=== PATIENT | male | born 1965 | race Caucasian/White ===

== ENCOUNTER 2017-06-25 09:41 | Observation (INO) | payer OTHER ==
[2017-06-25] MEDS ORDERED: Sodium Chloride 0.9% 1,000 ML IV STA (11:37)
--- NOTE | 2017-06-25 11:46 | ED PDOC ---
HPI: General Adult Time Seen by Provider: 06/25/17 11:08 Chief Complaint (Nursing): Headache History Per: Patient, Family (), Other (friend) Additional Complaint(s): As per pt.'s pt. woke up this morning at approximately 0600 with a headache. Pt.'s checked his FS which was 69. He took Tylenol without any relief of headache. As per his friend and they noticed that pt. seemed to be confused and was slow to answer questions. Pt. also had 2 episodes of vomiting. Furthermore pt. states he does feel better from this morning but does still have a headache and confused. Deneis head injury, fever, weakness, numbness, tingling, abdominal pain, diarrhea. NIHSS Stroke Scale - Date/Time Evaluation Performed Date Performed: 06/25/17 Time Performed: 11:30 - How Severe is the Stroke Level of Consciousness: 0=Alert LOC to Questions: 0=Both comments correct LOC to commands: 0=Obeys both correctly Best Gaze: 0=Normal Visual: 0=No visual loss Facial: 0=Normal Motor Arm - Left: 0=No drift Motor Arm - Right: 0=No drift Motor Leg - Left: 0=No drift Motor Leg - Right: 0=No drift Limb Ataxia: 0=Absent Sensory: 0=Normal Best Language: 0=No aphasia Dysarthia: 0=Normal articulation Extinction & Inattention (Neglect): 0=Normal, no object Score: 0 rTPA Inclusion/Exclusion - Refusal of Treatment Patient Refused Treatment: No - Inclusion Criteria for Altepase Patient is 18 years or Older: Yes The Clinical Diagnosis of Ischemic Stroke That is Causing a Potentially Disabling Neurological Deficit: No Time of Onset is Well Established to be Less Than 270 Minute Before Treatment Would Begin: No Risk/Benefit Discussed With Patient/Family Member Present: Yes - Exclusion Criteria for Altepase Uncontrolled Hypertension at Time of Treatment (Systolic BP above 185 or Diastolic BP above 110 mmHg): No Active Internal Bleeding: No Known Bleeding Diathesis Including but Not Limited to: Platelets Below 100,000/ mm,PTT Above 40 sec After Heparin Use, Current Use of Oral Anitcoagulant With INR Greater Than 1.7 or PT Greater Than 15 secs: No Evidence of an Intracranial Hemorrhage: No Evidence of Major Acute Infarct With Signs Greater Than 1/3 MCA Territory: No Suspicion of Subarachnoid Hemorrhage on Pretreatment Evaluation Even if CT Head Negative For Hemorrhage: No - Warning to TPA With Conditions Following Conditions Weighed Against Anticipated Benefit: Yes Condition: Stroke Serevity Too Mild Past Medical History Reviewed: Historical Data, Nursing Documentation, Vital Signs Vital Signs: Last Vital Signs Temp 98 F 06/25/17 19:35 Pulse 79 06/25/17 19:35 Resp 20 06/25/17 19:35 BP 138/71 06/25/17 19:35 Pulse Ox 99 06/25/17 19:35 - Medical History PMH: Diabetes - Surgical History Surgical History: Appendectomy - Family History Family History: States: No Known Family Hx - Home Medications Home Medications: Ambulatory Orders Medication Instructions Recorded Enalapril Maleate [Vasotec] 2.5 mg PO DAILY 06/25/17 Insulin Glargine,Hum.rec.anlog 25 - 30 unit SC HS 06/25/17 [Toujeo Solostar] Insulin Glulisine [Apidra] 10 - 15 unit SC AC 06/25/17 - Allergies Allergies/Adverse Reactions: Allergies Allergy/AdvReac Type Severity Reaction Status Date / Time No Known Allergies Allergy Verified 10/22/15 19:44 Review of Systems ROS Statement: Except As Marked, All Systems Reviewed And Found Negative Gastrointestinal: Positive for: Vomiting Neurological: Positive for: Confusion, Headache Physical Exam - Reviewed Nursing Documentation Reviewed: Yes Vital Signs Reviewed: Yes - Physical Exam Appears: Positive for: Well, Non-toxic, No Acute Distress Head Exam: Positive for: ATRAUMATIC, NORMAL INSPECTION, NORMOCEPHALIC Skin: Positive for: Normal Color, Warm. Negative for: Rash Eye Exam: Positive for: EOMI, Normal appearance, PERRL ENT: Positive for: Normal ENT Inspection Neck: Positive for: Normal, Painless ROM Cardiovascular/Chest: Positive for: Regular Rate, Rhythm Respiratory: Positive for: CNT, Normal Breath Sounds Pulses-Radial (L): 2+ Pulses-Radial (R): 2+ Gastrointestinal/Abdominal: Positive for: Normal Exam, Soft. Negative for: Tenderness Back: Positive for: Normal Inspection Extremity: Positive for: Normal ROM, Other ([facility] consultant strenght b/l) Neurologic/Psych: Positive for: Alert, Oriented, Gait (steady, unassisted). Negative for: Aphasia, Facial Droop - Laboratory Results Result Diagrams: 06/25/17 12:35 06/25/17 12:35 - ECG ECG: Positive for: Interpreted By Me ECG Rhythm: Positive for: Sinus Rhythm. Negative for: ST/T Changes Rate: 92 O2 Sat by Pulse Oximetry: 100 - Progress ED Course And Treament: [address] Mcdaniel who recommends CT head w/o contrast, labs. 1254 CT head w/o contrast: No suspicious intracranial findings in this unenhanced head CT. Brain parenchyma appears within normal limits. Incidental soft tissue bilateral external auditory canals may reflect cerumen. Direct visualization is advised. 1427 Case d/w Dr. Shore and arrangements made for admission. Disposition - Clinical Impression Clinical Impression: Altered mental status - Patient ED Disposition Is Patient to be Admitted: Yes - Disposition Disposition Time: 13:46 Condition: STABLE
[2017-06-25 12:44] LABS: BASO # 0.1 K/uL (0.0-0.2); BASO % 0.6 % (0.0-2.0); EOS % 0.1 % (0.0-4.0); HEMOGLOBIN 12.9 g/dL (12.0-18.0); LYMPH # 1.3 K/uL (1.0-4.3); LYMPH % 15.7 % (20.0-40.0); MEAN CELL VOLUME 115.8 fl (80.0-94.0); MEAN CORPUSCULAR HEMOGLOBIN 40.3 pg (27.0-31.0); MEAN CORPUSCULAR HGB CONC 34.8 g/dL (33.0-37.0); MEAN PLATELET VOLUME 8.4 fl (7.2-11.7); MONO # 0.3 K/uL (0.0-0.8); MONO % 3.1 % (0.0-10.0); NEUT # 6.8 K/uL (1.8-7.0); NEUT % 80.5 % (50.0-75.0); NRBC % 0.1 % (0.0-0.0); RBC 3.21 Mil/uL (4.40-5.90); RED CELL DISTRIBUTION WIDTH 13.8 % (11.5-14.5); WHITE BLOOD COUNT 8.5 K/uL (4.8-10.8)
--- NOTE | 2017-06-25 12:56 | CT ---
PROCEDURE: CT HEAD WITHOUT CONTRAST. HISTORY: headache COMPARISON: None available. TECHNIQUE: Axial computed tomography images were obtained through the head/brain without intravenous contrast. Radiation dose: Total exam DLP = 851.16 mGy-cm. This CT exam was performed using one or more of the following dose reduction techniques: Automated exposure control, adjustment of the mA and/or kV according to patient size, and/or use of iterative reconstruction technique. FINDINGS: HEMORRHAGE: No intracranial hemorrhage. BRAIN: Normal houser-white matter differentiation and density are appreciated throughout the cerebrum and cerebellum with the brainstem appearing unremarkable as well. There is no mass effect. There is no suspicious extra-axial fluid collection and the midline brain anatomy appears diffusely unremarkable. VENTRICLES: Unremarkable. No hydrocephalus. CALVARIUM: Unremarkable. PARANASAL SINUSES: Unremarkable as visualized. No significant inflammatory changes. MASTOID AIR CELLS: Unremarkable as visualized. No inflammatory changes. OTHER FINDINGS: Soft tissue in the bilateral external auditory canals may reflect cerumen though other etiologies are possible. Clinical follow-up advised. IMPRESSION: No suspicious intracranial findings in this unenhanced head CT. Brain parenchyma appears within normal limits. Incidental soft tissue bilateral external auditory canals may reflect cerumen. Direct visualization is advised.
[2017-06-25 12:57] LABS: ALB/GLOB RATIO 1.2 (1.0-2.1); ALBUMIN 4.2 g/dL (3.5-5.0); ALT/SGPT 34 U/L (21-72); AST/SGOT 29 U/L (17-59); BLOOD UREA NITROGEN 12 mg/dl (9-20); CALCIUM 9.1 mg/dL (8.4-10.2); GFR AFRICAN-AMERICAN > 60; GFR NON-AFRICAN AMERICAN > 60
[2017-06-25 13:28] LABS: SQUAMOUS EPITHIAL < 1 /hpf (0-5); URINE BILIRUBIN NEGATIVE (NEGATIVE); URINE BLOOD NEGATIVE (NEGATIVE); URINE CLARITY CLEAR (Clear); URINE COLOR YELLOW (YELLOW); URINE GLUCOSE (UA) 50 mg/dL (Normal); URINE LEUKOCYTE ESTERASE NEG Leu/uL (Negative); URINE NITRATE NEGATIVE (NEGATIVE); URINE PROTEIN NEGATIVE (NEGATIVE); URINE UROBILINOGEN 0.2-1.0 mg/dL (0.2-1.0)
--- NOTE | 2017-06-25 14:05 | RAD ---
HISTORY: Medical clearance. COMPARISON: 11/13/2010 FINDINGS: LUNGS: No active pulmonary disease. PLEURA: No significant pleural effusion identified, no pneumothorax apparent. CARDIOVASCULAR: No radiographic findings to suggest acute or significant cardiovascular disease. OSSEOUS STRUCTURES: No significant abnormalities. VISUALIZED UPPER ABDOMEN: Normal. OTHER FINDINGS: None. IMPRESSION: No active disease. No significant interval change compared to the prior examination(s).
--- NOTE | 2017-06-25 16:12 | CP.PCM.HP ---
History of Present Illness - History of Present Illness History of Present Illness: 51 yo male with history of IDDM brought in because of sluggishness in responding since earlier this morning upon waking up with headache. BS was noted to be 69. and patient noted that his BS has been running low recently. He was supposed to inject Apidra 10-15 units before meals but still inject 2-3 units when BS was 30 or 35. At night he shot 25 to 30 units of Glargine Insulin. Patient denied slurring, sensory deficit or motor weakness. Present on Admission - Present on Admission Any Indicators Present on Admission: No History of DVT/PE: No History of Uncontrolled Diabetes: No Urinary Catheter: No Decubitus Ulcer Present: No Review of Systems - Review of Systems All systems: reviewed and no additional remarkable complaints except (aside from those mentioned above, 14 point system review were negative by me) Past Patient History - Infectious Disease Hx of Infectious Diseases: None - Past Social History Smoking Status: Never Smoked Alcohol: None Drugs: Denies Home Situation {Lives}: With Family - CARDIAC Hx Cardiac Disorders: No - PULMONARY Hx Respiratory Disorders: No - NEUROLOGICAL Hx Neurological Disorder: No - HEENT Hx HEENT Problems: No - RENAL Hx Chronic Kidney Disease: No - ENDOCRINE/METABOLIC Hx Diabetes Mellitus Type 1: Yes - HEMATOLOGICAL/ONCOLOGICAL Hx Blood Disorders: No - INTEGUMENTARY Hx Dermatological Problems: No - MUSCULOSKELETAL/RHEUMATOLOGICAL Hx Musculoskeletal Disorders: No - GASTROINTESTINAL Hx Gastrointestinal Disorders: No - GENITOURINARY/GYNECOLOGICAL Hx Genitourinary Disorders: No - PSYCHIATRIC Hx Psychophysiologic Disorder: No Hx Substance Use: No - SURGICAL HISTORY Hx Appendectomy: Yes - ANESTHESIA Hx Anesthesia: Yes Hx Anesthesia Reactions: No Meds Allergies/Adverse Reactions: Allergies Allergy/AdvReac Type Severity Reaction Status Date / Time No Known Allergies Allergy Verified 10/22/15 19:44 Physical Exam - Constitutional Appears: No Acute Distress - Head Exam Head Exam: ATRAUMATIC - Eye Exam Eye Exam: absent: Scleral icterus - ENT Exam ENT Exam: Mucous Membranes Moist - Neck Exam Neck exam: Negative for: Meningismus - Respiratory Exam Respiratory Exam: absent: Rhonchi, Wheezes, Respiratory Distress - Cardiovascular Exam Cardiovascular Exam: REGULAR RHYTHM, +S1, +S2 - GI/Abdominal Exam GI & Abdominal Exam: Soft. absent: Tenderness - Rectal Exam Rectal Exam: Deferred - Extremities Exam Extremities exam: Negative for: pedal edema - Back Exam Back exam: absent: tenderness - Neurological Exam Neurological exam: Alert, Oriented x3 - Psychiatric Exam Psychiatric exam: Normal Affect - Skin Skin Exam: Dry, Intact Results - Vital Signs Recent Vital Signs: Last Vital Signs Temp 98 F 06/25/17 11:03 Pulse 92 H 06/25/17 14:27 Resp 18 06/25/17 11:03 BP 151/74 H 06/25/17 11:50 Pulse Ox 100 06/25/17 14:27 - Labs Result Diagrams: 06/25/17 12:35 06/25/17 12:35 Labs: Laboratory Results - last 24 hr 06/25/17 06/25/17 06/25/17 11:38 12:35 12:35 WBC 8.5 RBC 3.21 L Hgb 12.9 Hct 37.2 MCV 115.8 H MCH 40.3 H MCHC 34.8 RDW 13.8 Plt Count 299 MPV 8.4 Neut % (Auto) 80.5 H Lymph % (Auto) 15.7 L [place] % (Auto) 3.1 Eos % (Auto) 0.1 Baso % (Auto) 0.6 Neut # (Auto) 6.8 Lymph # (Auto) 1.3 [place] # (Auto) 0.3 Eos # (Auto) 0.0 Baso # (Auto) 0.1 Sodium 142 Potassium 3.9 Chloride 99 Carbon Dioxide 28 Anion Gap 19 BUN 12 Creatinine 0.6 L Est GFR ( Amer) > 60 Est GFR (Non-Af Amer) > 60 Random Glucose 173 H Calcium 9.1 Total Bilirubin 0.7 AST 29 ALT 34 Alkaline Phosphatase 130 H Troponin I < 0.0120 Total Protein 7.7 Albumin 4.2 Globulin 3.5 Albumin/Globulin Ratio 1.2 Urine Color Yellow Urine Clarity Clear Urine pH 7.0 Ur Specific [place] 1.011 Urine Protein Negative Urine Glucose (UA) 50 Urine Ketones Negative Urine Blood Negative Urine Nitrate Negative Urine Bilirubin Negative Urine Urobilinogen 0.2-1.0 Ur Leukocyte Esterase Neg Urine RBC (Auto) 1 Urine Microscopic WBC < 1 Ur Squamous Epith Cells < 1 Assessment & Plan - Assessment and Plan (Free Text) Assessment: 51 yo male with history of IDDM brought in because of sluggishness in responding since earlier this morning upon waking up with headache. BS was noted to be 69. and patient noted that his BS has been running low recently. He was supposed to inject Apidra 10-15 units before meals but still inject 2-3 units when BS was 30 or 35. At night he shot 25 to 30 units of Glargine Insulin. Patient denied slurring, sensory deficit or motor weakness. 1. Altered Mental Status headache and sluggishness probably secondary to hypoglycemic events because of too tight control of BS place on observation in telemetry CT scan of head: negative for bleed or infarct accuchek ACHS with low Lispro coverage HgA1C, BMP in am endocrinology consult with Dr Krishnamurthy
[2017-06-25] MEDS ORDERED: Insulin Lispro (humaLOG) 100 Units/ml Inj SC SCH (22:00)
--- NOTE | 2017-06-26 00:25 | CON ---
ENDOCRINOLOGY CONSULTATION DATE: LOCATION: In room 416 HISTORY OF PRESENT ILLNESS: This is a 51-year-old male with known history of type 1 insulin-dependent diabetes presenting here with altered mental status related to possible frequent hypoglycemic episodes and is now being referred for diabetic evaluation and management. PAST MEDICAL HISTORY: History of type 1 insulin-dependent diabetes, currently on a combination of Lantus taken at a variable dose of 20 to 30 units at bedtime with Apidra given as 10 to 15 units t.i.d. before meals as noted. History of hypertension and dyslipidemia. FAMILY HISTORY: Positive for diabetes and hypertension. SOCIAL HISTORY: The patient has a supportive family. No known substance use. REVIEW OF SYSTEMS: Has been noted by the to have increasing bouts of dizziness and lightheadedness with supervening altered mental status and recent confusion and disorientation and generalized body weakness. No chest pains or palpitations or PND. His oral intake is variable with nausea, dyspepsia, and vague upper abdominal pains. No recent alterations of bowel and urinary patterns. PHYSICAL EXAMINATION: GENERAL: This is an average-built male in no apparent distress. VITAL SIGNS: Blood pressure of 140/90, pulse of 70 beats per minute and regular, temperature 98, respirations 20, height is 5 feet 7 inches, and weight is 158 pounds. HEENT: Head Is normocephalic. Eyes anicteric with pink conjunctivae. Funduscopy not possible at this time. Ears, nose, and throat otherwise normal. NECK: Supple. Thyroid gland is normal in size. No carotid bruits or cervical adenopathy. CARDIOPULMONARY: Some adynamic precordium. S1 and S2 is rapid and regular. LUNGS: Clear to auscultation. ABDOMEN: Flat and soft with positive bowel sounds. EXTREMITIES: No peripheral edema. Pulses are +2 bilaterally. LABORATORY DATA: Initial chemistry showed a BUN of 12, sodium 142, potassium 3.9, chloride 99, CO2 of 28, glucose 173, and creatinine 0.6. His glucose initially done at home was 69 mg/dL as noted. ASSESSMENT: This is a 51-year-old male with uncontrolled and decompensated type 1 insulin-dependent diabetes presenting here with symptomatic hypoglycemia and associated neuroglycopenic and hyperadrenergic manifestations from possible insulin over replacement with a very variable and suboptimal oral intake at this time. PLAN: Plan of management, we will modify the low-dose correction scale with Humalog insulin to obviate hypoglycemia and detailed orders have been given. We will observe his glycemic fluctuations overnight and determine the need to restart his basal and bolus insulin regimen at a much lower dosage accordingly. We will obtain a hemoglobin A1c to confirm his prior glycemic control and baseline thyroid function studies and serum cortisol level will be obtained. We will follow. Kyara Krishnamurthy MD
[2017-06-26 05:27] LABS: BASO # 0.1 K/uL (0.0-0.2); BASO % 1.3 % (0.0-2.0); EOS # 0.1 K/uL (0.0-0.7); EOS % 3.4 % (0.0-4.0); HEMOGLOBIN 12.5 g/dL (12.0-18.0); LYMPH # 2.1 K/uL (1.0-4.3); LYMPH % 47.3 % (20.0-40.0); MEAN CELL VOLUME 117.1 fl (80.0-94.0); MEAN CORPUSCULAR HEMOGLOBIN 39.7 pg (27.0-31.0); MEAN CORPUSCULAR HGB CONC 33.9 g/dL (33.0-37.0); MEAN PLATELET VOLUME 8.4 fl (7.2-11.7); MONO # 0.4 K/uL (0.0-0.8); NEUT # 1.6 K/uL (1.8-7.0); NRBC % 0.2 % (0.0-0.0); RBC 3.15 Mil/uL (4.40-5.90); RED CELL DISTRIBUTION WIDTH 13.5 % (11.5-14.5); WHITE BLOOD COUNT 4.3 K/uL (4.8-10.8)
[2017-06-26 05:47] LABS: BLOOD UREA NITROGEN 15 mg/dl (9-20); CALCIUM 8.8 mg/dL (8.4-10.2); GFR AFRICAN-AMERICAN > 60; GFR NON-AFRICAN AMERICAN > 60
--- NOTE | 2017-06-26 08:33 | CARD ---
APPROVED REPORT EKG Measurement Heart [id number] [id number] <Conclusion> Normal sinus rhythm Rt [place] Normal ECG
[2017-06-26] MEDS: Insulin Lispro (humaLOG) 100 Units/ml Inj SC SCH ×2 (08:45→12:35)
--- NOTE | 2017-06-26 15:13 | CP.PCM.DIS ---
Provider - Provider Date of Admission: 06/25/17 15:40 Attending physician: Oniel Galvan MD Consults: Endo : Dr Krishnamurthy Time Spent in preparation of Discharge (in minutes): 40 Diagnosis - Discharge Diagnosis (1) Hypoglycemia due to insulin Status: Acute (2) Uncontrolled type 2 diabetes mellitus with insulin therapy Status: Acute Hospital Course - Lab Results Lab Results: Most Recent Lab Values WBC 4.3 K/uL (4.8-10.8) L 06/26/17 04:15 RBC 3.15 Mil/uL (4.40-5.90) L 06/26/17 04:15 Hgb 12.5 g/dL (12.0-18.0) 06/26/17 04:15 Hct 36.9 % (35.0-51.0) 06/26/17 04:15 MCV 117.1 fl (80.0-94.0) H 06/26/17 04:15 MCH 39.7 pg (27.0-31.0) H 06/26/17 04:15 MCHC 33.9 g/dL (33.0-37.0) 06/26/17 04:15 RDW 13.5 % (11.5-14.5) 06/26/17 04:15 Plt Count 259 K/uL (130-400) 06/26/17 04:15 MPV 8.4 fl (7.2-11.7) 06/26/17 04:15 Neut % (Auto) 38.0 % (50.0-75.0) L 06/26/17 04:15 Lymph % (Auto) 47.3 % (20.0-40.0) H 06/26/17 04:15 [place] % (Auto) 10.0 % (0.0-10.0) 06/26/17 04:15 Eos % (Auto) 3.4 % (0.0-4.0) 06/26/17 04:15 Baso % (Auto) 1.3 % (0.0-2.0) 06/26/17 04:15 Neut # (Auto) 1.6 K/uL (1.8-7.0) L 06/26/17 04:15 Lymph # (Auto) 2.1 K/uL (1.0-4.3) 06/26/17 04:15 [place] # (Auto) 0.4 K/uL (0.0-0.8) 06/26/17 04:15 Eos # (Auto) 0.1 K/uL (0.0-0.7) 06/26/17 04:15 Baso # (Auto) 0.1 K/uL (0.0-0.2) 06/26/17 04:15 Sodium 145 mmol/l (132-148) 06/26/17 04:15 Potassium 3.7 MMOL/L (3.6-5.0) 06/26/17 04:15 Chloride 104 mmol/L (98-107) 06/26/17 04:15 Carbon Dioxide 26 mmol/L (22-30) 06/26/17 04:15 Anion Gap 19 (10-20) 06/26/17 04:15 BUN 15 mg/dl (9-20) 06/26/17 04:15 Creatinine 0.7 mg/dl (0.8-1.5) L 06/26/17 04:15 Est GFR ( Amer) > 60 06/26/17 04:15 Est GFR (Non-Af Amer) > 60 06/26/17 04:15 POC Glucose (mg/dL) 257 mg/dL (65-110) H 06/26/17 15:00 Random Glucose 54 mg/dL (75-110) L 06/26/17 04:15 Hemoglobin A1c 7.5 % (4.2-6.5) H 06/26/17 04:15 Calcium 8.8 mg/dL (8.4-10.2) 06/26/17 04:15 Total Bilirubin 0.7 mg/dl (0.2-1.3) 06/25/17 12:35 AST 29 U/L (17-59) 06/25/17 12:35 ALT 34 U/L (21-72) 06/25/17 12:35 Alkaline Phosphatase 130 U/L (38-126) H 06/25/17 12:35 Troponin I < 0.0120 ng/mL (0.00-0.120) 06/25/17 12:35 Total Protein 7.7 G/DL (6.3-8.2) 06/25/17 12:35 Albumin 4.2 g/dL (3.5-5.0) 06/25/17 12:35 Globulin 3.5 gm/dL (2.2-3.9) 06/25/17 12:35 Albumin/Globulin Ratio 1.2 (1.0-2.1) 06/25/17 12:35 TSH 3rd Generation 2.15 mIU/ML (0.46-4.68) 06/26/17 04:15 Cortisol AM Sample 12.5 ug/dL (4.46-22.7) 06/26/17 04:15 Urine Color Yellow (YELLOW) 06/25/17 11:38 Urine Clarity Clear (Clear) 06/25/17 11:38 Urine pH 7.0 (5.0-8.0) 06/25/17 11:38 Ur Specific [place] 1.011 (1.003-1.030) 06/25/17 11:38 Urine Protein Negative mg/dL (NEGATIVE) 06/25/17 11:38 Urine Glucose (UA) 50 mg/dL (Normal) 06/25/17 11:38 Urine Ketones Negative mg/dL (NEGATIVE) 06/25/17 11:38 Urine Blood Negative (NEGATIVE) 06/25/17 11:38 Urine Nitrate Negative (NEGATIVE) 06/25/17 11:38 Urine Bilirubin Negative (NEGATIVE) 06/25/17 11:38 Urine Urobilinogen 0.2-1.0 mg/dL (0.2-1.0) 06/25/17 11:38 Ur Leukocyte Esterase Neg Nae/uL (Negative) 06/25/17 11:38 Urine RBC (Auto) 1 /hpf (0-3) 06/25/17 11:38 Urine Microscopic WBC < 1 /hpf (0-5) 06/25/17 11:38 Ur Squamous Epith Cells < 1 /hpf (0-5) 06/25/17 11:38 - Hospital Course Hospital Course: 51 y/o gent with Hx of DM Type II Insulin dependent , was brought in because of headache and lethargy. He has been having low Glucose readings for the past few days antolin as he has been adhering to DM diet and has been more active lately. When he noticed that his sugar was low , he took some orange juice with sugar and went to the ED. CT of head done in ED was negative. His Insulin was held and his Glucose was monitored closely . He had one glucose reading of 51. Endocrinology was consulted and Dr Krishnamurthy changed his Insulin to a more affordable one and dose was lowered. Pt's symptoms resolved . Discharge Exam - Head Exam Head Exam: ATRAUMATIC, NORMAL INSPECTION, NORMOCEPHALIC - Eye Exam Eye Exam: EOMI, Normal appearance, PERRL Pupil Exam: NORMAL ACCOMODATION, PERRL - ENT Exam ENT Exam: Mucous Membranes Moist, Normal External Ear Exam - Neck Exam Neck exam: Full Rom - Respiratory Exam Respiratory Exam: NORMAL BREATHING PATTERN. absent: Rales, Wheezes, Respiratory Distress - Cardiovascular Exam Cardiovascular Exam: REGULAR RHYTHM, +S1, +S2 - GI/Abdominal Exam GI & Abdominal Exam: Normal Bowel Sounds, Soft. absent: Tenderness - Extremities Exam Extremities exam: full ROM, normal capillary refill, normal inspection, pedal pulses present - Back Exam Back exam: FULL ROM. absent: CVA tenderness (L), CVA tenderness (R) - Neurological Exam Neurological exam: Alert, CN II-XII Intact, Normal Gait, Oriented x3, Reflexes Normal - Psychiatric Exam Psychiatric exam: Normal Affect, Normal Mood - Skin Skin Exam: Intact, Normal Color, Warm Discharge Plan - Discharge Medications Prescriptions: Insulin Human (NPH)/Regular [Novolin 70/30 (70/30 units/ml) 10 ml] 8 unit SQ QPM #3 ml Insulin Human (NPH)/Regular [Novolin 70/30 (70/30 units/ml) 10 ml] 15 units SC QAM #3 unit - Follow Up Plan Condition: GOOD Disposition: HOME/ ROUTINE Additional Instructions: Follow up with [facility] in [address] [place] [address] Check blood glucose before meals and bedtime and record the data. Bring in reading for follow up appointment.
[2017-06-26 15:48] VITALS: BP 126/80; PULSE 70; RESP 18; TEMP 97.7; O2SAT 100
[2017-06-26] MEDS ORDERED: Insulin Lispro Mix 75/25 100 units/ml (HumaLog) 10ml SC SCH (16:30)
--- NOTE | 2017-06-27 06:37 | PN ---
DATE: 06/26/2017 ENDOCRINOLOGY FOLLOWUP NOTE LOCATION: Room 416. SUBJECTIVE: This is a 51-year-old male with recent uncontrolled type 2 insulin requiring diabetes presenting here with symptomatic hypoglycemia and altered mental status and is now being followed closely for metabolic management. He has been taken of all the basal and bolus insulin regimen as noted. LABORATORY DATA: His glucose values overnight have still been low normal ranges from 51 to 117 and 119 mg/dL. The latest chemistry showed a BUN of 15, sodium 145, potassium 3.7, chloride 104, CO2 26, glucose 54 and creatinine 0.7. PLAN: At this time, we will continue only the very low dose coverage scale with NovoLog insulin as given only for glucose levels above 300 mg/dL. We will hold off the resumption of any kind of basal insulin and even oral hypoglycemic therapy for now. We will obtain serial chemistries and supplement accordingly as needed. We will follow. Kyara Krishnamurthy MD
[2017-06-27] MEDS ORDERED: Insulin Lispro Mix 75/25 100 units/ml (HumaLog) 10ml SC SCH (07:30)
== END 2017-06-26 17:45 | disposition home or self-care (01) ==
LOC: H.ER 09:41 → H.ERHOLD 15:40 → H.TEL 18:26
DX: E16.0 Drug-induced hypoglycemia without coma (principal); I10 Essential (primary) hypertension; E78.5 Hyperlipidemia, unspecified; T38.3X5A Adverse effect of insulin and oral hypoglycemic [antidiabetic] drugs, initial encounter; E11.65 Type 2 diabetes mellitus with hyperglycemia
CPT/HCPCS: 36415; 70450; 71045; 80048; 80053; 81003; 82533; 82948; 83036; 84443; 84484; 85025; 93005; 99285; G0378; J2765; J7040

== ENCOUNTER 2017-12-05 17:18 | Emergency (ER) | payer OTHER ==
[2017-12-05 17:34] VITALS: TEMP 98.6; O2SAT 99
[2017-12-05 19:16] LABS: BASO # 0.1 K/uL (0.0-0.2); BASO % 1.5 % (0.0-2.0); EOS # 0.2 K/uL (0.0-0.7); EOS % 2.9 % (0.0-4.0); HEMOGLOBIN 12.9 g/dL (12.0-18.0); LYMPH # 2.3 K/uL (1.0-4.3); LYMPH % 43.1 % (20.0-40.0); MEAN CELL VOLUME 95.7 fl (80.0-94.0); MEAN CORPUSCULAR HGB CONC 33.4 g/dL (33.0-37.0); MEAN PLATELET VOLUME 8.3 fl (7.2-11.7); MONO # 0.5 K/uL (0.0-0.8); MONO % 9.2 % (0.0-10.0); NEUT # 2.3 K/uL (1.8-7.0); NEUT % 43.3 % (50.0-75.0); NRBC % 0.1 % (0.0-0.0); RBC 4.03 Mil/uL (4.40-5.90); RED CELL DISTRIBUTION WIDTH 17.8 % (11.5-14.5); WHITE BLOOD COUNT 5.4 K/uL (4.8-10.8)
[2017-12-05 19:30] LABS: BLOOD UREA NITROGEN 17 mg/dl (9-20); CALCIUM 9.4 mg/dL (8.4-10.2); GFR AFRICAN-AMERICAN > 60; GFR NON-AFRICAN AMERICAN > 60
--- NOTE | 2017-12-05 19:50 | ED PDOC ---
Upper Extremity Pain/Injury Time Seen by Provider: 12/05/17 17:58 Chief Complaint (Nursing): Upper Extremity Problem/Injury Chief Complaint (Provider): left elbow swelling and discomfort History Per: Patient History/Exam Limitations: no limitations Onset/Duration Of Symptoms: Days (several weeks) Current Symptoms Are (Timing): Still Present Additional Complaint(s): Jerry Ortiz is a 52 year old male, with no significant past medical history, who presents to the emergency department complaining of left elbow swelling and discomfort onset for several weeks. Patient states the swelling came on suddenly and has not shrunk since. 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 Patient denies any known trauma to elbow. He denies any insect bites, rash, fever, chills or similar symptoms in the past. No further medical complaints. PMD: Dr. Worley, but has not followed up yet. Past Medical History Reviewed: Historical Data, Nursing Documentation, Vital Signs Vital Signs: Last Vital Signs Temp 98.6 F 12/05/17 17:30 Pulse 87 12/05/17 17:30 Resp 18 12/05/17 17:30 BP 136/81 12/05/17 17:30 Pulse Ox 99 12/05/17 17:30 - Medical History PMH: Diabetes, HTN Denies: HIV, Chronic Kidney Disease - Surgical History Surgical History: Appendectomy - Family History Family History: States: Unknown Family Hx - Social History Current smoker - smoking cessation education provided: No Alcohol: None Drugs: Denies - Home Medications Home Medications: Ambulatory Orders Medication Instructions Recorded Enalapril Maleate [Vasotec] 2.5 mg PO DAILY 06/25/17 Acetaminophen [Tylenol 325mg tab] 650 mg PO Q6 PRN tab 06/26/17 Insulin Human (NPH)/Regular 8 unit SQ QPM #3 ml 06/26/17 [Novolin 70/30 (70/30 units/ml) 10 ml] Insulin Human (NPH)/Regular 15 units SC QAM #3 unit 06/26/17 [Novolin 70/30 (70/30 units/ml) 10 ml] - Allergies Allergies/Adverse Reactions: Allergies Allergy/AdvReac Type Severity Reaction Status Date / Time No Known Allergies Allergy Verified 12/05/17 17:35 Review of Systems ROS Statement: Except As Marked, All Systems Reviewed And Found Negative Constitutional: Negative for: Fever, Chills Musculoskeletal: Positive for: Arm Pain (left elbow swelling) Skin: Negative for: Rash (redness) Physical Exam - Reviewed Nursing Documentation Reviewed: Yes Vital Signs Reviewed: Yes - Physical Exam Appears: Positive for: No Acute Distress Head Exam: Positive for: ATRAUMATIC, NORMAL INSPECTION, NORMOCEPHALIC Skin: Positive for: Normal Color, Warm, Dry Eye Exam: Positive for: Normal appearance Neck: Positive for: Painless ROM Cardiovascular/Chest: Positive for: Regular Rate, Rhythm. Negative for: Murmur Respiratory: Positive for: Normal Breath Sounds. Negative for: Respiratory Distress Gastrointestinal/Abdominal: Positive for: Normal Exam, Soft. Negative for: Tenderness Back: Positive for: Normal Inspection Extremity: Positive for: Normal ROM (full ROM of all extremities), Swelling ( soft swelling limited over the olecranon process of left elbow. No warmth or drainage, nonmobile.), Other (Sensation intact, no swelling to distal extremities). Negative for: Tenderness (to palpation or movement on left elbow) Neurologic/Psych: Positive for: Alert, Oriented. Negative for: Motor/Sensory Deficits - Laboratory Results Result Diagrams: 12/05/17 19:13 12/05/17 19:09 - ECG O2 Sat by Pulse Oximetry: 99 (RA) Pulse Ox Interpretation: Normal Medical Decision Making Medical Decision Making: Time: 17:58 Initial Impression: Olecranon bursitis. Sending labs to r/o infectious process. X-ray to r/o trauma. Initial Plan: --BMP --Uric Acid --CBC w/ differential --Elbow left 3 views routine [RAD] --Reevaluation -Will reassess patient and discharge home. Patient will be advised to follow up with PMD. Labs show no leukocycytes and xrays show no acute injury. Pt with elevated glucose level which he attributes to not taking medication while in the ED. Pt to follow up with primary medical doctor and will take Motrin for pain and swelling. Pt advised to limit contact with the elbow and the keep the arm straight when possible. Return parameter discussed with the patient and referral for follow up given. Scribe Attestation: Documented by Albino Rosario acting as a scribe for Paty Truong MD. Scribe Attestation: All medical record entries made by the Scribe were at my direction and personally dictated by me. I have reviewed the chart and agree that the record accurately reflects my personal performance of the history, physical exam, medical decision making, and the department course for this patient. I have also personally directed, reviewed, and agree with the discharge instructions and disposition. Disposition - Clinical Impression Clinical Impression: Olecranon bursitis - Disposition Referrals: [facility] [Outside] Disposition Time: 21:00 Condition: STABLE Additional Instructions: Take Motrin for pain and swelling. Follow up in the clinic as stated in referral. Avoid contact with the swollen elbow and keep the arm straight when possible. Instructions: Olecranon Bursitis, Olecranon Bursitis (DC) Forms: [employer] (Kyrgyz)
[2017-12-05 20:42] VITALS: BP 136/81; PULSE 87; RESP 18
--- NOTE | 2017-12-06 08:47 | RAD ---
Date of service: 12/05/2017 PROCEDURE: Radiographs of the left elbow. HISTORY: left elbow swelling and pain COMPARISON: No prior. FINDINGS: BONES: Bone alignment and mineralization are normal. There is no acute displaced fracture or bone destruction. JOINTS: Normal. No osteoarthritis. SOFT TISSUES: Normal. JOINT EFFUSION: None. OTHER FINDINGS: None IMPRESSION: Unremarkable radiographs of the left elbow.
== END 2017-12-05 21:12 | disposition home or self-care (01) ==
LOC: H.ER 17:18
DX: M70.22 Olecranon bursitis, left elbow (principal); E11.9 Type 2 diabetes mellitus without complications; Z79.4 Long term (current) use of insulin; I10 Essential (primary) hypertension